=== PATIENT | female | born 1970 | race Caucasian/White ===

== ENCOUNTER 2017-09-16 08:28 | Outpatient (CLI) | payer OTHER | END 2017-09-16 08:32 | disposition home or self-care (01) | LOC: MAMO-SONO 08:28 | DX: Z12.31 Encounter for screening mammogram for malignant neoplasm of breast (principal) ==

== ENCOUNTER 2019-06-08 07:55 | Day surgery (SDC) | payer OTHER | END 2019-06-08 13:17 | disposition home or self-care (01) | LOC: CIR.AMB 07:55 → ADM 09:00 → CIR.AMB 09:00 | DX: T19.3XXA Foreign body in uterus, initial encounter (principal) ==